=== PATIENT | female | born 1985 | race Caucasian/White ===

== ENCOUNTER 2017-03-05 10:11 | Emergency (ER) | payer OTHER ==
[~2017-03-05] VITALS: Ht 162.6 cm; Wt 90.5 kg
[2017-03-05 10:16] VITALS: BP 124/79
[2017-03-05] MEDS ORDERED: UNK ANTIBIOTIC PO (10:23)
[2017-03-05] MEDS ORDERED: IBUPROFEN 800 MG TABLET PO ONE (12:15)
== END 2017-03-05 12:28 | disposition home or self-care (01) ==
LOC: EMS 10:12
DX: Z48.00 Encounter for change or removal of nonsurgical wound dressing (principal)
CPT/HCPCS: 99282